=== PATIENT | male | born 1985 | race Two or more races ===

== ENCOUNTER 2024-05-25 06:00 | Day surgery (SDC) | payer OTHER ==
[2024-05-13 12:38] VITALS: BP 122/82
[~2024-05-25] VITALS: Ht 182.9 cm; Wt 92.5 kg
[~2024-05-25 06:00] MED LIST: BIKTARVY 30-121 EACH PO; DEPAKOTE ER500 MG PO; PERCOCET 5-3251 EACH PO; RECTICARE30 GM TOP
[2024-05-25] MEDS ORDERED: BUPIVACAINE HCL 30 ML VIAL IJ ONE (08:15)
[2024-05-25] MEDS ORDERED: POVIDONE-IODINE 118 ML BOTT TOP ONE (08:15)
[2024-05-25] MEDS ORDERED: BUPIVACAINE LIPOSOME/PF 266 MG/20 ML VIAL IJ ONE (08:15)
[2024-05-25] MEDS ORDERED: METRONIDAZOLE/SODIUM CHLORIDE 500 MG/100 ML PIGGYBACK IV SCH (08:15)
[2024-05-25] MEDS ORDERED: DIBUCAINE 30 GM TUBE RECTAL ONE (08:15)
[2024-05-25] MEDS ORDERED: LIDOCAINE HCL 1%/EPINEPHRINE 20ML VIAL IJ ONE (08:15)
[2024-05-25] MEDS ORDERED: HEMOSTATIC MATRIX 1 KIT KIT TOP ONE (08:15)
[2024-05-25] MEDS ORDERED: CEFTRIAXONE SODIUM 2,000 MG VIAL IV SCH (08:15)
[2024-05-25] MEDS ORDERED: PERCOCET 5-3251 EACH PO (08:24)
[2024-05-25] MEDS ORDERED: RECTICARE30 GM TOP (08:24)
== END 2024-05-25 12:05 | disposition home or self-care (01) ==
LOC: CIR.AMB 06:00
PROVIDERS: ATTEND Surgery
DX: D12.9 Benign neoplasm of anus and anal canal (principal); A63.0 Anogenital (venereal) warts; K62.89 Other specified diseases of anus and rectum; Z88.6 Allergy status to analgesic agent